=== PATIENT | male | born 1980 | race Caucasian/White ===

== ENCOUNTER 2018-04-30 17:25 | Emergency (ER) | payer MEDICAID ==
[~2018-04-30] VITALS: Ht 162.6 cm; Wt 69.4 kg
[2018-04-30 17:38] VITALS: BP 155/92
--- NOTE | 2018-04-30 18:15 | NUR ---
37 YO M BIB SELF W/ C/O PAIN, REDNESS & SWELLING TO L MORRIS S/P PUNCTURE WOUND TO LEFT MORRIS X 2 DAYS AGO WHILE WORKING IN THE YARD. DENIES BLEEDING. DENIES N/V/FEVERS. UNKNOWN LAST TETANUS SHOT, REPORTS PROBABLY ABOUT 10 YEARS AGO. AAOX4, GCS 15. CMS INTACT. DENIES DRUG/ETOH USE, SMOKES CIGARETTES. PATIENT STATES PAIN OF 7/10 AT THIS TIME; VSS; PATIENT POSITIONED FOR COMFORT; ER MD MADE AWARE OF PT STATUS.
[2018-04-30] MEDS ORDERED: LEVOFLOXACIN 500 MG TAB PO ONE (18:40)
[2018-04-30] MEDS ORDERED: CLINDAMYCIN 600 MG/4 ML VIAL IM ONE (18:40)
[2018-04-30] MEDS ORDERED: NEOMYCIN/POLYMYXIN/BACITRACIN 0.9 GM/1 PKT TP ONE (18:40)
--- NOTE | 2018-04-30 19:17 | NUR ---
REPORT GIVEN TO KATHRYN MITCHELL.
[2018-04-30 19:21] VITALS: BP 132/89
--- NOTE | 2018-04-30 19:21 | NUR ---
Patient discharged with v/s stable. Written and verbal after care instructions given and explained. Patient alert, oriented and verbalized understanding of instructions. Ambulatory with steady gait. All questions addressed prior to discharge. ID band removed. Patient advised to follow up with PMD. Rx of CLINDAMYCIN, BACTRIM & MOTRIN given. Patient educated on indication of medication including possible reaction and side effects. Opportunity to ask questions provided and answered.
== END 2018-04-30 19:21 | disposition home or self-care (01) ==
LOC: MED 17:25
DX: S80.12XA Contusion of left lower leg, initial encounter (principal); W22.8XXA Striking against or struck by other objects, initial encounter; Y93.89 Activity, other specified; Y92.096 Garden or yard of other non-institutional residence as the place of occurrence of the external cause; Y99.8 Other external cause status
CPT/HCPCS: 73590; 90471; 90715; 96372; 99283; J3490; Q0092

== ENCOUNTER 2021-02-13 13:58 | Emergency (ER) | payer MEDICAID, OTHER ==
[~2021-02-13] VITALS: Ht 167.6 cm; Wt 114.8 kg
[2021-02-13 14:05] VITALS: BP 148/100
[2021-02-13] MEDS ORDERED: BACITRACIN OINT 500 UNITS/GM PKT TP ONE (14:55)
--- NOTE | 2021-02-13 14:55 | NUR ---
ALTAGRACIA Pulido is evaluating patient at bedside
--- NOTE | 2021-02-13 14:55 | NUR ---
40YO M C/O HEAD LACERATION 3 DAYS AGO. [facility] AND HIT HIS HEAD. DENIES LOC, VOMITING, H/A, DIZZINESS. PT DENIES ANY PAIN. PT CLEANED WITH SOAP/WATER AND PEROXIDE AND APPLIED NEOSPORIN. BLEEDING CONTROLLED. PMH: NONE MEDS: NONE NKA
[2021-02-13] MEDS ORDERED: NAPR-54 PO (14:56)
[2021-02-13] MEDS ORDERED: CEPH-588 PO (14:56)
--- NOTE | 2021-02-13 15:13 | NUR ---
Patient discharged with v/s stable. Written and verbal after care instructions given and explained. Patient alert, oriented and verbalized understanding of instructions. Ambulatory with steady gait. All questions addressed prior to discharge. ID band removed. Patient advised to follow up with PMD. Rx of Cephalexin, Naproxen given. Patient educated on indication of medication including possible reaction and side effects. Opportunity to ask questions provided and answered.
== END 2021-02-13 15:13 | disposition home or self-care (01) ==
LOC: MED 13:58
DX: S01.01XA Laceration without foreign body of scalp, initial encounter (principal); W22.8XXA Striking against or struck by other objects, initial encounter; Y93.89 Activity, other specified; Y92.89 Other specified places as the place of occurrence of the external cause; Y99.8 Other external cause status
CPT/HCPCS: 99283

== ENCOUNTER 2021-08-28 01:20 | Emergency (ER) | payer MEDICAID, OTHER ==
[~2021-08-28] VITALS: Ht 165.1 cm; Wt 103.0 kg
[~2021-08-28 01:20] MED LIST: CEPH-588 PO; NAPR-54 PO
[2021-08-28 01:26] VITALS: BP 122/87
--- NOTE | 2021-08-28 01:31 | NUR ---
PATIENT AMBULATED TO BED 5
[2021-08-28] MEDS ORDERED: IBUP-2213 PO (02:29)
--- NOTE | 2021-08-28 03:00 | NUR ---
41 YO MALE BIB HOME FOR LEFT SHOULDER PAIN X 5 DAYS PT WOKE UP AND SAID IT STARTED TO HURT UNPROVOKED. PT HAS NO PMH, NO ALLERIGES AND DOES NOT HAVE ANY MEDS. PT TOOK TYENOL OD
--- NOTE | 2021-08-28 03:00 | NUR ---
Pearl churchill in [facility] - 08/28/21 at 0319 by ELEUTERIOJSydni 41 YO MALE LISA YOUNG
[2021-08-28] MEDS ORDERED: CLOT1CRE90 TP (03:18)
[2021-08-28 03:50] VITALS: BP 130/84
--- NOTE | 2021-08-28 03:50 | NUR ---
Patient discharged with v/s stable. Written and verbal after care instructions given and explained. Patient alert, oriented and verbalized understanding of instructions. Ambulatory with steady gait. All questions addressed prior to discharge. ID band removed. Patient advised to follow up with PMD. Rx of clotrimazole and ibuprofen given. Opportunity to ask questions provided and answered.
--- NOTE | 2021-08-28 04:23 | NUR ---
The patient's care was reviewed and supervised by Sharla Layne RN. Chart checked.
== END 2021-08-28 03:50 | disposition home or self-care (01) ==
LOC: MED 01:20
DX: S46.011A Strain of muscle(s) and tendon(s) of the rotator cuff of right shoulder, initial encounter (principal); N47.6 Balanoposthitis; Z79.899 Other long term (current) drug therapy; X58.XXXA Exposure to other specified factors, initial encounter; Y93.89 Activity, other specified; Y92.89 Other specified places as the place of occurrence of the external cause; Y99.8 Other external cause status
CPT/HCPCS: 99282

== ENCOUNTER 2022-06-06 02:26 | Emergency (ER) | payer MEDICAID ==
[~2022-06-06] VITALS: Ht 170.2 cm; Wt 108.9 kg
[~2022-06-06 02:26] MED LIST changes: +CLOT1CRE90 TP; +IBUP-2213 PO
[2022-06-06 02:31] VITALS: BP 153/94
--- NOTE | 2022-06-06 02:40 | NUR ---
PT TO 8
--- NOTE | 2022-06-06 03:00 | NUR ---
Dr. Jenkins examining patient.
[2022-06-06] MEDS ORDERED: cefTRIAXone 1,000 MG in LIDOCAINE MPF 1% 2.1 ML IM ONE (03:05)
[2022-06-06] MEDS ORDERED: LIDOCAINE MPF 1% 5 ML ONE (03:19)
[2022-06-06] MEDS ORDERED: cefTRIAXone 1,000 MG VIAL ONE (03:19)
[2022-06-06] MEDS ORDERED: PENI500T20 PO (04:08)
[2022-06-06] MEDS ORDERED: NAPR-54 PO (04:08)
[2022-06-06 04:10] VITALS: BP 142/85
--- NOTE | 2022-06-06 04:10 | NUR ---
Patient discharged with v/s stable. Written and verbal after care instructions given and explained by Dr. Jenkins. Patient alert, oriented and verbalized understanding of instructions. Ambulatory with steady gait. All questions addressed prior to discharge. ID band removed. Patient advised to follow up with PMD. Rx of Naproxen and Penicillin V Potassium given. Patient educated on indication of medication including possible reaction and side effects. Opportunity to ask questions provided and answered.
== END 2022-06-06 04:10 | disposition home or self-care (01) ==
LOC: MED 02:26
DX: K08.89 Other specified disorders of teeth and supporting structures (principal); K13.70 Unspecified lesions of oral mucosa; Z79.1 Long term (current) use of non-steroidal anti-inflammatories (NSAID); Z79.2 Long term (current) use of antibiotics
CPT/HCPCS: 96372; 99283; J0696; J2001

== ENCOUNTER 2022-07-08 11:41 | Emergency (ER) | payer MEDICAID ==
[~2022-07-08] VITALS: Ht 167.6 cm; Wt 95.3 kg
[~2022-07-08 11:41] MED LIST changes: +PENI500T20 PO
[2022-07-08 11:46] VITALS: BP 168/88
--- NOTE | 2022-07-08 11:48 | NUR ---
PT AMBULATED TO BED 2
--- NOTE | 2022-07-08 11:50 | NUR ---
41YO MALE PT C/O ABSCESS X3DAYS. REPORTS INITIAL INGROWN HAIR W/ YELLOW PUS. MILD ACTIVE DRAINAGE NOTED. DENIES N/V/D, FEVER , CHILLS OR SOB. PT AAOX4, HOB POSITIONED PER COMFORT HX:DENIES NKA
--- NOTE | 2022-07-08 11:56 | NUR ---
ALTAGRACIA SUNSHINE AT BEDSIDE FOR EVALUATION
[2022-07-08] MEDS ORDERED: LIDOCAINE 1% 500 MG/ 50 ML VIAL INJ ONE (12:00)
[2022-07-08] MEDS ORDERED: cefTRIAXone 1,000 MG in LIDOCAINE MPF 1% 2.1 ML IM ONE (12:00)
[2022-07-08] MEDS ORDERED: LIDOCAINE MPF 1% 10 MG/ML VIAL INJ ONE (12:05)
[2022-07-08] MEDS ORDERED: LIDOCAINE MPF 1% 5 ML ONE (12:06)
[2022-07-08] MEDS ORDERED: cefTRIAXone 1,000 MG VIAL ONE (12:06)
[2022-07-08] MEDS ORDERED: SULF-59 PO (12:31)
[2022-07-08] MEDS ORDERED: KETOROLAC 30 MG/ML VIAL IM ONE (12:50)
[2022-07-08] MEDS ORDERED: KETOROLAC 30 MG/ML VIAL ONE (12:55)
== END 2022-07-08 12:59 | disposition home or self-care (01) ==
LOC: MED 11:41
DX: L02.811 Cutaneous abscess of head [any part, except face] (principal); L03.811 Cellulitis of head [any part, except face]; R03.0 Elevated blood-pressure reading, without diagnosis of hypertension; Z79.2 Long term (current) use of antibiotics; Z79.1 Long term (current) use of non-steroidal anti-inflammatories (NSAID)
CPT/HCPCS: 96372; 99284; J0696; J1885; J2001

== ENCOUNTER 2022-12-14 05:45 | Emergency (ER) | payer MEDICAID ==
[~2022-12-14] VITALS: Ht 167.6 cm; Wt 104.3 kg
[~2022-12-14 05:45] MED LIST changes: +SULF-59 PO
[2022-12-14 05:53] VITALS: BP 145/88; PULSE 110; RESP 20; TEMP 98.2; O2SAT 98
[2022-12-14] MEDS ORDERED: cefTRIAXone 500 MG in LIDOCAINE MPF 1% 1 ML IM ONE (06:15)
[2022-12-14] MEDS ORDERED: cefTRIAXone 500 MG VIAL ONE (06:17)
[2022-12-14] MEDS ORDERED: DOXY-745 PO (06:17)
[2022-12-14] MEDS ORDERED: LIDOCAINE MPF 1% 5 ML ONE (06:18)
[2022-12-14 06:35] VITALS: BP 145/88; PULSE 98; RESP 20; TEMP 98.1; O2SAT 98
[2022-12-14 07:04] LABS: BILIRUBIN,URINE NEGATIVE (NEGATIVE); BLOOD, URINE NEGATIVE (NEGATIVE); COLOR,URINE YELLOW (YELLOW); NITRITE, URINE NEGATIVE (NEGATIVE); PROTEIN,URINE 2+ (NEGATIVE); UGLUCOSE 3+ (NEGATIVE); UROBILINOGEN,URINE 0.2 EU/dL (0.2 - 1)
[2022-12-14 07:16] LABS: APPEARANCE,URINE SLIGHTLY HAZY (CLEAR); LEUKOCYTE ESTERASE ,URINE 1+ (NEGATIVE)
[2022-12-14 08:00] LABS: BACTERIA,URINE OCCASSIONAL /HPF (None Seen); RBC,URINE 0-5 /HPF (0-5); SQUAMOUS EPITHELIAL CELL,UR 0-3 (FEW) /LPF (0-3 (FEW))
== END 2022-12-14 06:35 | disposition home or self-care (01) ==
LOC: MED 05:45
DX: N50.812 Left testicular pain (principal); N45.1 Epididymitis; Z79.899 Other long term (current) drug therapy
CPT/HCPCS: 81001; 87086; 87491; 96372; 99283; J0696; J2001